=== PATIENT | female | born 1995 | race African-American/Black ===

== ENCOUNTER 2023-02-06 16:34 | Emergency (ER) | payer SELFPAY ==
[~2023-02-06] VITALS: Ht 165.1 cm; Wt 75.0 kg
[2023-02-06 16:44] VITALS: BP 95/52; PULSE 68; RESP 18
[2023-02-06] MEDS ORDERED: ESCI-8 PO (16:44)
== END 2023-02-06 19:15 | disposition left against medical advice (07) ==
LOC: EMS 16:36
DX: Z53.21 Procedure and treatment not carried out due to patient leaving prior to being seen by health care provider (principal)
CPT/HCPCS: 99281; Z7502